=== PATIENT | female | born 1945 | race Caucasian/White ===

== ENCOUNTER 2022-07-22 09:57 | Inpatient (IN) | payer MEDICARE, OTHER ==
[2022-07-19 14:15] LABS: BILIRUBIN,URINE 1+ (NEGATIVE); UROBILINOGEN,URINE 0.2 E.U./dL (0.2)
[2022-07-22] VITALS (10 sets, daily range): BP systolic 90–147; BP diastolic 45–81
[~2022-07-22] VITALS: Ht 152.4 cm; Wt 78.6 kg
[~2022-07-22 09:57] MED LIST: ACET325T12 PO; AMLO-169 PO; ASPI81TA13 PO; AZEL137S4; BACTROBAN OINTMENT TP ONE; ESOM40CA PO; GABA100C7 PO; HYDR25TA9 PO; LEVO75TA6 PO; METO25TA4 PO; NS 250ML 250 ML ONE; NS 3000ML IRR IR ONE; OXYB15TA18 PO; SIMV40TA20 PO; VALS80TA3 PO; VANCOMYCIN 1.5 GM/300 ML BAG 300 ML IV ONE; WATER ONE; ZYNRELEF 400-12 MG/14 ML VIAL IL ONE; [UNRECOGNIZED DRUG - CODE] PO
[2022-07-22] MEDS: LACTATED RINGERS 1,000 ML IV SCH ×2 (10:30→21:08)
--- NOTE | 2022-07-22 12:03 | PCM.HP ---
HISTORY & PHYSICAL HISTORY & PHYSICAL DATE OF ADMISSION: 07/22/22 CHIEF COMPLAINT: right hip pain HISTORY OF PRESENT ILLNESS: Patient reports right hip pain for x1 year, worse over the past few months. She has had cortisone injections over the past few years. She reports groin pain as well as lateral thigh pain. She has had to use a walker for weight bearing over the past 6 months. She has hip pain with household ambulation. She takes tylenol and gabapentin for the pain. She is unable to take NSAIDs due to GI issues. She complains of limping. She had a left hip replacement in 2013. ALLERGIES: PCN, tetracyclines, cetirizine, codeine, naproxen, oxaprozin CURRENT MEDICATIONS:tylenol, proventil, aspirin, astelin, clotrimazole, aricept, nexium, romeo, gabapentin, HCTZ, levothyroxine, metoprolol, nystatin, oxybutynin, simvastatin, valsartan PAST MEDICAL HISTORY:HTN, hypothyroid, tachycardia, OA SOCIAL HISTORY:, lives at home with . Former smoker, reports that she quit smoking in 2013. Denies alcohol use. Denies drug use. FAMILY HISTORY:aneurysm, DM REVIEW OF SYSTEMS: Right hip pain, all other systems unremarkable VITAL SIGNS:WNL PHYSICAL EXAMINATION: SKIN: WNL EENT:WNL AIRWAY:WNL CHEST AND LUNGS: CTA HEART:RRR ABDOMEN: Soft and nontender, BS active x 4 quadrants EXTREMITIES: The right hip has no tenderness about the greater trochanter. She has about 90 degrees of flexion of the right hip. She has no internal rotation with severe pain and only 20 degrees of external rotation. LABORATORY DATA: IMAGING: Xrays of the right hip show that she is [id number] superiorly. SUMMARY: osteoarthritis of the right hip ASSESSMENT/PLAN: Right total hip replacement Laboratory Tests Test 07/19/22 14:00 Urine Collection Type RANDOM Urine Color YELLOW Urine Appearance HAZY Urine Bilirubin 1+ (NEGATIVE) Urine Ictotest NEGATIVE (NEGATIVE) Urine Ketones NEGATIVE (NEGATIVE) Urine Specific [place] 1.025 (1.005-1.030) Urine pH 5.0 (4.5-8.0) Urine Protein 1+ (NEGATIVE) Urine Urobilinogen 0.2 E.U./dL (0.2) Urine Nitrate NEGATIVE (NEGATIVE) Urine Leukocyte Esterase TRACE (NEGATIVE) Urine Glucose (Auto)(UA) NEGATIVE (NEGATIVE) Urine Blood NEGATIVE (NEGATIVE) Urine RBC NONE SEEN RBC/HPF (NONE Urine WBC TooNumerousToCount WBC/HPF (0-2) Urine Squamous Epithelial Cells FEW (<=FEW) Urine Bacteria FEW (NONE SEEN) Microbiology Date/Time Source Procedure Growth Status 07/19/22 14:00 Urine,Random Urine Culture - Final Proteus Mirabilis Eschericha Coli Complete 07/19/22 13:55 Nose MRSA Screen - Final Complete STONE,KALE FIRST BREAKER FEEDER July 22, 2022 12:03
[2022-07-22] MEDS ORDERED: VERSED ONE (14:20)
[2022-07-22] MEDS ORDERED: EXPAREL 266 MG/20 ML VIAL IJ ONE (14:20)
[2022-07-22] MEDS ORDERED: MARCAINE 0.5% ONE (14:20)
[2022-07-22] MEDS ORDERED: OFIRMEV 100 ML IV ONE (14:27)
[2022-07-22] MEDS ORDERED: DECADRON ONE (14:28)
[2022-07-22] MEDS ORDERED: TRANEXAMIC 1,000 MG/100ML-NACL 200 ML IV ONE (14:28)
[2022-07-22] MEDS ORDERED: DIPRIVAN 100 ML IV ONE ×2 (14:28→17:01)
[2022-07-22] MEDS ORDERED: ZOFRAN ONE (14:28)
[2022-07-22] MEDS ORDERED: LACTATED RINGERS 1,000 ML ONE (14:29)
[2022-07-22] MEDS ORDERED: SODIUM CHLORIDE IRR BOTTLE IR ONE (16:11)
[2022-07-22] MEDS ORDERED: VANCOMYCIN HCL 1 GM in NS 250ML 250 ML IV ONE (17:00)
[2022-07-22] MEDS ORDERED: VANCOMYCIN HCL 1 GM ONE (17:03)
[2022-07-22] MEDS ORDERED: NS 250ML 250 ML ONE (17:03)
[2022-07-22] MEDS ORDERED: DILAUDID ONE (18:57)
[2022-07-22] MEDS ORDERED: DILAUDID IV ONE (19:00)
[2022-07-22] MEDS ORDERED: ULTRAM PO PRN (19:30)
[2022-07-22] MEDS ORDERED: LACTATED RINGERS 1,000 ML IV SCH (19:30)
[2022-07-22] MEDS ORDERED: NEXIUM PO SCH (19:30)
[2022-07-22] MEDS ORDERED: ZOFRAN IV PRN (19:30)
[2022-07-22] MEDS ORDERED: CEPACOL SORE THROAT LOZENGE MM PRN (19:30)
--- NOTE | 2022-07-22 20:26 | OPH ---
DATE OF SURGERY: 07/22/2022 DICTATOR NAME: Fermín Fuentes MD PREOPERATIVE DIAGNOSIS: Osteoarthritis of the right hip. POSTOPERATIVE DIAGNOSIS: Osteoarthritis of the right hip. OPERATIVE PROCEDURES: * Right total hip arthroplasty. * ORIF of a right femur fracture. SURGEON: Fermín Fuentes MD. ANESTHESIA: Spinal. BLOOD LOSS: 700 mL COMPLICATIONS: Right femur fracture intraoperatively DESCRIPTION OF INDICATIONS: The patient is a 76-year-old female who has had pain for at least 1 year, about the right hip secondary to osteoarthritis. Symptoms are worse over the last several months. She has had cortisone injections about the hip over the last several years with temporary relief. She complains of groin pain as well as lateral thigh pain. She uses a walker at times in the last 6 months. The patient is severely limited in her daily activities because of hip pain. She cannot take any anti-inflammatories because of GI issues. She complains of limping. The x-ray showed that she superiorly [id number] about the hip with lateral subluxation. The patient has 90 degrees of flexion of the hip. She has no internal rotation and 20 degrees of external rotation with severe pain. The patient was taken to the operating room today for right total hip arthroplasty. DESCRIPTION OF PROCEDURE: The patient was placed in the operating table in the supine position. Spinal anesthetic was given and then she was placed in the operating table in the supine position. The patient had the right foot and ankle well padded and they were placed in a traction boot. The traction boot was then attached to the traction unit. The patient had the right lower extremity sterilely prepped and draped. The patient then had the anterior incision made about the hip. The incision was taken through the skin and the subcutaneous tissues. The patient then had the IT band opened. The tensor muscle was reflected posteriorly. The rectus fascia was opened and the rectus muscles retracted medially. The circumflex vessels were identified and coagulated with the Aquamantys device. The patient had the fat pad over the anterior capsule excised. The capsular incision was made. The capsule was retracted proximally and posteriorly. The femoral neck cut was then made with the power saw and the femoral head was removed with a corkscrew device. The patient then had the fovea cleared. The posterior ligaments were released as well as the piriformis tendon. The patient then had the acetabulum sequentially reamed up to a size 48. The 48 trial had good fit clinically as well as radiographically. The 48 Versafit cup was then impacted into position. The hip was placed in maximal external rotation as well as hyperextension. The canal was opened initially with a curette and then subsequently with the large and small rasp. The canal was then sequentially rasped up to a size 2. A trial reduction was done with a size 2 femoral stem, a lateral neck and the -3.5 and eventually the 3.5 neck length. Trial reduction was done. Hip was felt to be stable. The trial components were then removed and the hip was placed in maximal external rotation and hyperextension. We tried [address] a cement restrictor at the 12 cm freddy, but were unsuccessful disengaging the cement restrictor itself from the cement family practice physician. We elected at that point to proceed with a press-fit arthroplasty. We moved up to a size 3 rasp and rasped the hip. A trial reduction was done and there was appropriate sizing of the components and appropriate leg length. The trial component was removed. The size 3 Medacta stem was then impacted into position. Unfortunately, at the time of x-rays, the patient suffered an intraoperative femoral stem fracture. The C-arm views showed a spiral fracture. We left the stem in position, removed the trial head and the trial liner. We then extended the incision distally about 15 cm. The IT band was opened in line with the skin incision and the vastus lateralis was reflected anteriorly. We placed four 1.7 Synthes cables about the femur and reduced the fracture. C-arm views showed satisfactory positioning of the prosthesis and satisfactory reduction of the fracture. We then placed a 28 mm, -3.5 ceramic head with the 48 liner onto the Painter taper neck. The hip was reduced. There was no change in malalignment of the prosthesis after the reduction. The wounds were then copiously irrigated. The vastus lateralis was closed with a running #1 PDS. The patient had the capsule and the joint irrigated with Betadine for 3 minutes. The Betadine was then irrigated from the wound. The capsule was closed with a #2-0, Ethilon. Zynrelef was then injected into the capsule and the remaining portion of the capsule was closed. The patient then had the IT band closed with a running #1 barbed PDS. The subcutaneous was closed with a 2-0 barbed Monocryl in a running subcuticular manner. The skin was closed with ting. The patient had the suction Prevena type dressing applied. The patient was sent to recovery in stable condition. Fermín Fuentes MD DR: JOHNNY/KEVIN TID: [id number] RECEIPT: [id number]
[2022-07-22] MEDS ORDERED: VANCOMYCIN IV SCH (21:00)
--- NOTE | 2022-07-22 21:07 | DIREP ---
PROCEDURE:XRAY HIP MIN 2VW-RT COMPARISON:None. INDICATIONS:right hip pain FINDINGS: BONES:Bilateral total hip arthroplasty hardware in near-anatomic alignment. JOINTS:Mild osteophytosis of the sacroiliac joints. Marked lumbar spine degenerative changes. SOFT TISSUES:Expected postsurgical changes. OTHER:No additional findings. CONCLUSION:Bilateral total hip arthroplasty hardware without acute complication noted. Dictated by: Jamal Santos M.D. on 07/22/2022 at 09:04 PM
[2022-07-22 21:09] LABS: RED CELL DISTRIBUTION WIDTH 14.7 % (11.5-14.5)
[2022-07-22] MEDS: LOPRESSER PO SCH (21:21)
[2022-07-22] MEDS: NEURONTIN PO SCH (21:21)
[2022-07-22] MEDS: TYLENOL PO SCH (23:24)
[2022-07-23] MEDS: ULTRAM PO PRN ×3 (00:08→20:40)
[2022-07-23 00:23] VITALS: BP 128/67
[2022-07-23 04:46] VITALS: BP 123/56
[2022-07-23] MEDS: TYLENOL PO SCH ×4 (05:46→23:37)
[2022-07-23] MEDS: DILAUDID IV PRN ×2 (05:56→09:26)
[2022-07-23 06:09] LABS: MEAN CORP HGB 28.8 pg (26-34); RED CELL DISTRIBUTION WIDTH 14.5 % (11.5-14.5)
[2022-07-23 08:05] VITALS: BP 91/51
[2022-07-23] MEDS: NEURONTIN PO SCH ×2 (08:41→20:41)
[2022-07-23] MEDS: COLACE PO SCH (08:41)
[2022-07-23] MEDS: DITROPAN PO SCH ×3 (08:42→20:41)
[2022-07-23] MEDS: COZAAR PO SCH ×2 (08:45→20:41)
[2022-07-23] MEDS: CLARITIN PO SCH (08:45)
[2022-07-23] MEDS: HYDROCHLOROTHIAZIDE PO SCH (08:46)
[2022-07-23] MEDS: NORVASC PO SCH (08:46)
[2022-07-23] MEDS: LOPRESSER PO SCH ×3 (08:46→20:41)
[2022-07-23] MEDS ORDERED: SYNTHROID PO SCH (09:00)
[2022-07-23] MEDS: VANCOMYCIN IV SCH ×2 (09:24→20:39)
--- NOTE | 2022-07-23 09:32 | PRM.PN ---
Subjective Subjective Date: July 23, 2022 Time: 09:31 Subjective Awake and alert Pain ok VSS HGB 8.5 Postop anemia from acute surgical blood loss expected Start PT Patient History: Alzheimer's disease G8 MOTHER, , Age:88 Congestive heart failure G8 MOTHER, , Age:88 Diabetes mellitus G8 MOTHER, , Age:88 Unknown G8 FATHER, , Age:34 VTE VTE Risk Total Score: 3 VTE Risk Score VTE Risk: Score 0-1 = Low Risk (Aggressive mobilization; early ambulation; no VTE prophylaxis required) Score 2: Moderate Risk (Intermittent/Pneumatic Compression Device OR Lovenox/Heparin/Coumadin) Score 3-4: High Risk (Intermittent/Pneumatic Compression Device AND Lovenox/Heparin/Coumadin) Score > or =5: Highest Risk (Intermittent/Pneumatic Compression Device AND Lovenox/Heparin/Coumadin) Review of Systems Allergies: Coded Allergies: Penicillins (Verified Allergy, Unknown, ANAPHYLAXIC SHOCK, 07/19/22) Tetracyclines (Verified Allergy, Unknown, "ITCHING, SWELLING, TROUBLE SWALLOWING", 07/19/22) cetirizine (Verified Allergy, Unknown, "TACHYCARDIA", 07/19/22) codeine (Verified Allergy, Unknown, "HORRIBLE HEADACHES, STOMACH PAIN, N/V", 07/19/22) naproxen (Verified Allergy, Unknown, 07/19/22) oxaprozin (Verified Allergy, Unknown, 07/19/22) Scheduled Acetaminophen (Tylenol), 1-2 TAB PO BID, (Reported) Amlodipine Besylate (Amlodipine Besylate), 1 TAB PO DAILY, (Reported) Aspirin (Low Dose Aspirin Ec), 1 TAB PO DAILY, (Reported) Azelastine Hcl (Azelastine Hcl), 2 SPR NA BID, (Reported) Esomeprazole Magnesium (Nexium), 1 CAP PO QAM, (Reported) Fexofenadine Hcl (Fexofenadine Hcl), 1 TAB PO DAILY, (Reported) Gabapentin (Gabapentin), 1 CAP PO BID, (Reported) Hydrochlorothiazide (Hydrochlorothiazide), 1 TAB PO DAILY, (Reported) Levothyroxine Sodium (Levothyroxine Sodium), 1 TAB PO DAILY, (Reported) Metoprolol Tartrate 25MG (Lopresser 25MG), 1 TAB PO BID, (Reported) Oxybutynin Chloride (Oxybutynin Chloride Er), 1 TAB PO DAILY, (Reported) Simvastatin (Simvastatin), 1 TAB PO HS, (Reported) Valsartan (Diovan), 1 TAB PO BID, (Reported) Objective Vitals and I/O Vital Sign - Last 24 Hours 07/22/22 07/22/22 07/22/22 07/22/22 10:05 10:05 15:15 18:56 Temp 97.2 98.3 96.9 Pulse 69 85 Resp 16 20 B/P (MAP) 147/72 (97) 122/50 (74) Pulse Ox 93 94 O2 Delivery Room Air Room Air Non-Rebreather O2 Flow Rate 15.00 07/22/22 07/22/22 07/22/22 07/22/22 19:00 19:00 19:07 19:12 Pulse 68 59 58 Resp 20 18 18 B/P (MAP) 122/50 (74) 107/45 (65) 114/70 (85) Pulse Ox 100 100 95 O2 Delivery Non-Rebreather Non-Rebreather Non-Rebreather O2 Flow Rate 15.00 15.00 15.00 5.00 07/22/22 07/22/22 07/22/22 07/22/22 19:16 19:20 19:25 19:30 Temp 97.0 Pulse 58 58 61 50 Resp 18 18 18 18 B/P (MAP) 118/70 (86) 114/46 (68) 90/65 (73) Pulse Ox 100 99 96 96 O2 Delivery Non-Rebreather Non-Rebreather Non-Rebreather Non-Rebreather O2 Flow Rate 5.00 5.00 5.00 5.00 07/22/22 07/22/22 07/22/22 07/22/22 19:35 19:39 19:40 20:30 Temp 97.3 Pulse 60 60 Resp 18 18 B/P (MAP) 120/72 (88) 138/81 (100) Pulse Ox 90 90 O2 Delivery Non-Rebreather Nasal Canula Nasal Cannula O2 Flow Rate 5.00 3.00 3.00 2.00 07/22/22 07/22/22 07/23/22 07/23/22 20:50 21:21 00:23 04:46 Temp 97.9 97.9 Pulse 60 60 75 79 Resp 18 18 18 B/P (MAP) 138/81 128/67 (87) 123/56 (78) Pulse Ox 90 98 98 O2 Delivery Nasal Cannula* Nasal Cannula* Nasal Cannula* O2 Flow Rate 2 2 2 FiO2 28 28 28 07/23/22 07/23/22 07/23/22 07/23/22 08:05 08:45 08:46 08:46 Temp 98.4 Pulse 90 90 Resp 16 B/P (MAP) 91/51 (64) 91/51 91/51 91/51 Pulse Ox 96 O2 Delivery Nasal Cannula* O2 Flow Rate 2 FiO2 28 07/23/22 07/23/22 09:06 09:28 Pulse 90 B/P (MAP) 126/77 O2 Delivery Nasal Cannula O2 Flow Rate 2.00 Intake and Output 07/23/22 07:00 Intake Total 3150 ml Output Total 380 ml Balance 2770 ml All Results(Lab/Rad) Laboratory Tests Test 07/22/22 20:56 07/23/22 05:53 White Blood Count 17.5 10^3/uL 15.4 10^3/uL Red Blood Count 3.34 10^6/uL 2.95 10^6/uL Hemoglobin 9.7 g/dL 8.5 g/dL Hematocrit 31.4 % 26.4 % Mean Corpuscular Volume 94.0 fL 89.5 fL Mean Corpuscular Hemoglobin 29.0 pg 28.8 pg Mean Corpuscular Hemoglobin Concent 30.9 g/dL 32.2 g/dL Red Cell Distribution Width 14.7 % 14.5 % Platelet Count 250 10^3/uL 241 10^3/uL Mean Platelet Volume 9.4 fL 9.1 fL Current Medications Medications (Trade) Dose Ordered Sig/Camille Route PRN Reason Start Time Stop Time Status Last Admin Dose Admin Mupirocin (Bactroban Ointment) 1 gm OT ONCE TP 07/22/22 07:00 07/22/22 10:01 DC 07/22/22 10:35 Sterile Water (Water) 1,000 ml STK-MED ONCE .ROUTE 07/22/22 07:20 07/22/22 07:20 DC Sodium Chloride 250 ml @ ud STK-MED ONCE .ROUTE 07/22/22 07:21 07/22/22 07:21 DC Sodium Chloride (NS 3000ml Irr) 3,000 ml STK-MED ONCE IR 07/22/22 07:22 07/22/22 07:22 DC Bupivacaine HCl (Marcaine 0.5%) 1 ml STK-MED ONCE .ROUTE 07/22/22 14:20 07/22/22 14:20 DC Acetaminophen 100 ml @ ud STK-MED ONCE IV 07/22/22 14:27 07/22/22 14:28 DC Ondansetron HCl (Zofran) 4 mg STK-MED ONCE .ROUTE 07/22/22 14:28 07/22/22 14:28 DC Propofol 100 ml @ ud STK-MED ONCE IV 07/22/22 14:28 07/22/22 14:28 DC Sodium Chloride (Sodium Chloride Irr Bottle) 1,000 ml STK-MED ONCE IR 07/22/22 16:11 07/22/22 16:11 DC Propofol 100 ml @ ud STK-MED ONCE IV 07/22/22 17:01 07/22/22 17:02 DC Sodium Chloride 250 ml @ ud STK-MED ONCE .ROUTE 07/22/22 17:03 07/22/22 17:03 DC Vancomycin HCl 1 ml @ ud STK-MED ONCE .ROUTE 07/22/22 17:03 07/22/22 17:03 DC Hydromorphone HCl (Dilaudid) 2 mg STK-MED ONCE .ROUTE 07/22/22 18:57 07/22/22 18:57 DC Vancomycin HCl 1 gm/Sodium Chloride 250 ml @ 175 mls/hr OT ONCE IV 07/22/22 17:00 07/22/22 21:30 DC 07/22/22 17:05 Hydromorphone HCl (Dilaudid) 0.5 mg OT ONCE IV 07/22/22 19:00 07/22/22 21:27 DC 07/22/22 09:00 Rivaroxaban (Xarelto) 10 mg DAILY PO 07/23/22 19:00 08/22/22 18:59 Docusate Sodium (Colace) 100 mg DAILY PO 07/23/22 09:00 08/22/22 08:59 07/23/22 08:41 Throat Lozenges (Cepacol Sore Throat Lozenge) 1 each PRN PRN MM SORE THROAT 07/22/22 19:30 08/21/22 19:29 Acetaminophen (Tylenol) 1,000 mg Q6HR PO 07/23/22 00:00 08/22/22 00:00 07/23/22 05:46 Tramadol HCl (Ultram) 50 mg Q6H PRN PO PAIN 1 - 3 07/22/22 19:30 08/21/22 19:29 Tramadol HCl (Ultram) 100 mg Q6H PRN PO PAIN 4 - 6 07/22/22 19:30 08/21/22 19:29 Hydromorphone HCl (Dilaudid) 1 mg Q4H PRN IV PAIN 7 - 10 07/22/22 19:30 08/21/22 19:29 07/23/22 09:26 Ondansetron HCl (Zofran) 4 mg Q4H PRN IV NAUSEA / VOMITING 07/22/22 19:30 08/21/22 19:29 Amlodipine Besylate (Norvasc) 5 mg DAILY PO 07/23/22 09:00 08/22/22 08:59 Esomeprazole Magnesium (Nexium) 40 mg QAM PO 07/22/22 19:30 08/21/22 19:29 Gabapentin (Neurontin) 100 mg BID PO 07/22/22 21:00 08/21/22 20:59 07/23/22 08:41 Hydrochlorothiazide (Hydrochlorothiazide) 25 mg DAILY PO 07/23/22 09:00 08/22/22 08:59 Levothyroxine Sodium (Synthroid) 75 mcg DAILY PO 07/23/22 09:00 08/22/22 08:59 07/23/22 08:42 Metoprolol Tartrate (Lopresser) 25 mg BID PO 07/22/22 21:00 08/21/22 20:59 07/23/22 09:28 Loratadine (Claritin) 10 mg DAILY PO 07/23/22 09:00 08/22/22 08:59 07/23/22 08:45 Oxybutynin Chloride (Ditropan) 5 mg TID PO 07/23/22 09:00 08/22/22 08:59 07/23/22 08:42 Atorvastatin Calcium (Lipitor) 20 mg HS PO 07/23/22 21:00 08/22/22 20:59 Losartan Potassium (Cozaar) 50 mg BID PO 07/23/22 09:00 08/22/22 08:59 Course Sepsis Screening Results: Posi: NEGATIVE Sepsis Qualifier/Stage: NO DEFINITE RISK Vitals & review Data Vital Sign - Last 24 Hours 07/22/22 07/22/22 07/22/22 07/22/22 10:05 10:05 15:15 18:56 Temp 97.2 98.3 96.9 Pulse 69 85 Resp 16 20 B/P (MAP) 147/72 (97) 122/50 (74) Pulse Ox 93 94 O2 Delivery Room Air Room Air Non-Rebreather O2 Flow Rate 15.00 07/22/22 07/22/22 07/22/22 07/22/22 19:00 19:00 19:07 19:12 Pulse 68 59 58 Resp 20 18 18 B/P (MAP) 122/50 (74) 107/45 (65) 114/70 (85) Pulse Ox 100 100 95 O2 Delivery Non-Rebreather Non-Rebreather Non-Rebreather O2 Flow Rate 15.00 15.00 15.00 5.00 07/22/22 07/22/22 07/22/22 07/22/22 19:16 19:20 19:25 19:30 Temp 97.0 Pulse 58 58 61 50 Resp 18 18 18 18 B/P (MAP) 118/70 (86) 114/46 (68) 90/65 (73) Pulse Ox 100 99 96 96 O2 Delivery Non-Rebreather Non-Rebreather Non-Rebreather Non-Rebreather O2 Flow Rate 5.00 5.00 5.00 5.00 07/22/22 07/22/22 07/22/22 07/22/22 19:35 19:39 19:40 20:30 Temp 97.3 Pulse 60 60 Resp 18 18 B/P (MAP) 120/72 (88) 138/81 (100) Pulse Ox 90 90 O2 Delivery Non-Rebreather Nasal Canula Nasal Cannula O2 Flow Rate 5.00 3.00 3.00 2.00 07/22/22 07/22/22 07/23/22 07/23/22 20:50 21:21 00:23 04:46 Temp 97.9 97.9 Pulse 60 60 75 79 Resp 18 18 18 B/P (MAP) 138/81 128/67 (87) 123/56 (78) Pulse Ox 90 98 98 O2 Delivery Nasal Cannula* Nasal Cannula* Nasal Cannula* O2 Flow Rate 2 2 2 FiO2 28 28 28 07/23/22 07/23/22 07/23/22 07/23/22 08:05 08:45 08:46 08:46 Temp 98.4 Pulse 90 90 Resp 16 B/P (MAP) 91/51 (64) 91/51 91/51 91/51 Pulse Ox 96 O2 Delivery Nasal Cannula* O2 Flow Rate 2 FiO2 28 07/23/22 07/23/22 09:06 09:28 Pulse 90 B/P (MAP) 126/77 O2 Delivery Nasal Cannula O2 Flow Rate 2.00 Intake and Output 07/23/22 07:00 Intake Total 3150 ml Output Total 380 ml Balance 2770 ml Laboratory Tests Test 07/22/22 20:56 07/23/22 05:53 White Blood Count 17.5 10^3/uL 15.4 10^3/uL Red Blood Count 3.34 10^6/uL 2.95 10^6/uL Hemoglobin 9.7 g/dL 8.5 g/dL Hematocrit 31.4 % 26.4 % Mean Corpuscular Volume 94.0 fL 89.5 fL Mean Corpuscular Hemoglobin 29.0 pg 28.8 pg Mean Corpuscular Hemoglobin Concent 30.9 g/dL 32.2 g/dL Red Cell Distribution Width 14.7 % 14.5 % Platelet Count 250 10^3/uL 241 10^3/uL Mean Platelet Volume 9.4 fL 9.1 fL Current Medications Medications (Trade) Dose Ordered Sig/Camille PRN Reason Start Time Stop Time Status Last Admin Acetaminophen (Tylenol) 1,000 mg Q6HR 07/23/22 00:00 08/22/22 00:00 07/23/22 05:46 Amlodipine Besylate (Norvasc) 5 mg DAILY 07/23/22 09:00 08/22/22 08:59 Atorvastatin Calcium (Lipitor) 20 mg HS 07/23/22 21:00 08/22/22 20:59 Docusate Sodium (Colace) 100 mg DAILY 07/23/22 09:00 08/22/22 08:59 07/23/22 08:41 Esomeprazole Magnesium (Nexium) 40 mg QAM 07/22/22 19:30 08/21/22 19:29 Gabapentin (Neurontin) 100 mg BID 07/22/22 21:00 08/21/22 20:59 07/23/22 08:41 Hydrochlorothiazide (Hydrochlorothiazide) 25 mg DAILY 07/23/22 09:00 08/22/22 08:59 Hydromorphone HCl (Dilaudid) 1 mg Q4H PRN PAIN 7 - 10 07/22/22 19:30 08/21/22 19:29 07/23/22 09:26 Levothyroxine Sodium (Synthroid) 75 mcg DAILY 07/23/22 09:00 08/22/22 08:59 07/23/22 08:42 Loratadine (Claritin) 10 mg DAILY 07/23/22 09:00 08/22/22 08:59 07/23/22 08:45 Losartan Potassium (Cozaar) 50 mg BID 07/23/22 09:00 08/22/22 08:59 Metoprolol Tartrate (Lopresser) 25 mg BID 07/22/22 21:00 08/21/22 20:59 07/23/22 09:28 Ondansetron HCl (Zofran) 4 mg Q4H PRN NAUSEA / VOMITING 07/22/22 19:30 08/21/22 19:29 Oxybutynin Chloride (Ditropan) 5 mg TID 07/23/22 09:00 08/22/22 08:59 07/23/22 08:42 Rivaroxaban (Xarelto) 10 mg DAILY 07/23/22 19:00 08/22/22 18:59 Throat Lozenges (Cepacol Sore Throat Lozenge) 1 each PRN PRN SORE THROAT 07/22/22 19:30 08/21/22 19:29 Tramadol HCl (Ultram) 50 mg Q6H PRN PAIN 1 - 3 07/22/22 19:30 08/21/22 19:29 Tramadol HCl (Ultram) 100 mg Q6H PRN PAIN 4 - 6 07/22/22 19:30 08/21/22 19:29 LEVEL 1 SEPSIS INFECTION CRITE: ABX Therapy, Recent Invasive Procedure LEVEL 2-SIRS (LIST ALL THAT AP: WBC>[id number] Cardiovascular Evidence: Not Assessed or None Hepatic Evidence: None/Not assessed Metabolic Evidence: None/Not assessed Neurological Evidence: None/Not assessed Respiratory Evidence: None/Not assessed O2 Sat by Pulse Oximetry: 96 Oxygen Flow Rate: 2.00 ARYA STRONG MD July 23, 2022 09:32
[2022-07-23] MEDS ORDERED: NS 250ML 250 ML ONE ×2 (09:37→20:33)
[2022-07-23] MEDS ORDERED: DILAUDID IV PRN (10:00)
[2022-07-23] MEDS: PROTONIX PO SCH (10:00)
--- NOTE | 2022-07-23 10:00 | NUR ---
PT STATUS NOTIFIED TAVON RODRIGUEZ IN REGARD TO PT STATUS. PT IS AROUSABLE TO TOUCH HOWEVER FALLS ASLEEP VERY QUICKLY AND WAS NOT ABLE TO STAND WITH PT/OT THIS MORNING. CHANNEL LAYER STATES DILAUDID WAS CHANGED TO Q8HR/PRN INSTEAD OF Q4HR/PRN, AND PERHAPS THIS COULD BE THE REASON WHY PT IS SLEEPY. BLOOD PRESSURE CHECKED AND IS 106/57 RR 18 AND HR 96. WILL CONTINUE TO UPDATE DR STRONG AND OR TAVON GARCIA NEEDED.
[2022-07-23 11:54] VITALS: BP 105/63
[2022-07-23 16:28] VITALS: BP 117/63
[2022-07-23] MEDS: XARELTO PO SCH (19:09)
[2022-07-23 20:33] VITALS: BP 103/60
[2022-07-23] MEDS: LIPITOR PO SCH (20:42)
[2022-07-24] VITALS (9 sets, daily range): BP systolic 103–136; BP diastolic 55–74
[2022-07-24 05:28] LABS: MEAN CORP HGB 28.5 pg (26-34); RED CELL DISTRIBUTION WIDTH 14.8 % (11.5-14.5)
[2022-07-24] MEDS: SYNTHROID PO SCH (06:02)
[2022-07-24] MEDS: TYLENOL PO SCH ×4 (06:02→23:44)
[2022-07-24] MEDS: ULTRAM PO PRN ×3 (06:09→21:23)
[2022-07-24] MEDS: DITROPAN PO SCH ×3 (09:22→21:05)
[2022-07-24] MEDS: COLACE PO SCH (09:22)
--- NOTE | 2022-07-24 09:22 | PRM.PN ---
Subjective Subjective Date: July 24, 2022 Time: 09:20 Subjective Very sleepy yesterday from Claudia Stood at bedside with PT VSS HGB 7.2 Will transfuse [id number] PRBCS Cont with PT Patient History: Alzheimer's disease G8 MOTHER, , Age:88 Congestive heart failure G8 MOTHER, , Age:88 Diabetes mellitus G8 MOTHER, , Age:88 Unknown G8 FATHER, , Age:34 VTE VTE Risk Total Score: 3 VTE Risk Score VTE Risk: Score 0-1 = Low Risk (Aggressive mobilization; early ambulation; no VTE prophylaxis required) Score 2: Moderate Risk (Intermittent/Pneumatic Compression Device OR Lovenox/Heparin/Coumadin) Score 3-4: High Risk (Intermittent/Pneumatic Compression Device AND Lovenox/Heparin/Coumadin) Score > or =5: Highest Risk (Intermittent/Pneumatic Compression Device AND Lovenox/Heparin/Coumadin) Review of Systems Allergies: Coded Allergies: Penicillins (Verified Allergy, Unknown, ANAPHYLAXIC SHOCK, 07/19/22) Tetracyclines (Verified Allergy, Unknown, "ITCHING, SWELLING, TROUBLE SWALLOWING", 07/19/22) cetirizine (Verified Allergy, Unknown, "TACHYCARDIA", 07/19/22) codeine (Verified Allergy, Unknown, "HORRIBLE HEADACHES, STOMACH PAIN, N/V", 07/19/22) naproxen (Verified Allergy, Unknown, 07/19/22) oxaprozin (Verified Allergy, Unknown, 07/19/22) Scheduled Acetaminophen (Tylenol), 1-2 TAB PO BID, (Reported) Amlodipine Besylate (Amlodipine Besylate), 1 TAB PO DAILY, (Reported) Aspirin (Low Dose Aspirin Ec), 1 TAB PO DAILY, (Reported) Azelastine Hcl (Azelastine Hcl), 2 SPR NA BID, (Reported) Esomeprazole Magnesium (Nexium), 1 CAP PO QAM, (Reported) Fexofenadine Hcl (Fexofenadine Hcl), 1 TAB PO DAILY, (Reported) Gabapentin (Gabapentin), 1 CAP PO BID, (Reported) Hydrochlorothiazide (Hydrochlorothiazide), 1 TAB PO DAILY, (Reported) Levothyroxine Sodium (Levothyroxine Sodium), 1 TAB PO DAILY, (Reported) Metoprolol Tartrate 25MG (Lopresser 25MG), 1 TAB PO BID, (Reported) Oxybutynin Chloride (Oxybutynin Chloride Er), 1 TAB PO DAILY, (Reported) Simvastatin (Simvastatin), 1 TAB PO HS, (Reported) Valsartan (Diovan), 1 TAB PO BID, (Reported) Objective Vitals and I/O Vital Sign - Last 24 Hours 07/23/22 07/23/22 07/23/22 07/23/22 09:28 09:30 10:00 11:54 Temp 97.9 Pulse 90 87 76 Resp 16 16 B/P (MAP) 126/77 105/63 (77) Pulse Ox 92 76 O2 Delivery Room Air* Nasal Cannula Nasal Cannula* O2 Flow Rate 0 2.00 2 FiO2 07/23/22 07/23/22 07/23/22 07/23/22 16:28 19:54 19:55 20:33 Temp 98.3 97.7 Pulse 79 90 Resp 16 17 B/P (MAP) 117/63 (81) 103/60 (74) Pulse Ox 92 93 O2 Delivery Nasal Cannula* Room Air Room Air Room Air* O2 Flow Rate 2 0.00 0.00 0 FiO2 28 21 07/23/22 07/23/22 07/23/22 07/24/22 20:41 20:41 21:15 00:24 Temp 98.0 Pulse 90 82 92 Resp 20 17 B/P (MAP) 103/60 103/60 127/62 (83) Pulse Ox 90 93 O2 Delivery Room Air* Room Air* O2 Flow Rate 0 0 FiO2 21 07/24/22 07/24/22 07/24/22 07/24/22 04:05 07:47 08:04 08:28 Temp 97.6 97.3 Pulse 90 88 Resp 17 20 B/P (MAP) 103/55 (71) 127/58 (81) Pulse Ox 94 91 O2 Delivery Room Air* Room Air Room Air* Room Air O2 Flow Rate 0 0.00 0 0.00 FiO2 21 21 Intake and Output 07/24/22 07:00 Intake Total 680 ml Output Total 850 ml Balance -170 ml All Results(Lab/Rad) Laboratory Tests Test 07/22/22 20:56 07/23/22 05:53 White Blood Count 17.5 10^3/uL 15.4 10^3/uL Red Blood Count 3.34 10^6/uL 2.95 10^6/uL Hemoglobin 9.7 g/dL 8.5 g/dL Hematocrit 31.4 % 26.4 % Mean Corpuscular Volume 94.0 fL 89.5 fL Mean Corpuscular Hemoglobin 29.0 pg 28.8 pg Mean Corpuscular Hemoglobin Concent 30.9 g/dL 32.2 g/dL Red Cell Distribution Width 14.7 % 14.5 % Platelet Count 250 10^3/uL 241 10^3/uL Mean Platelet Volume 9.4 fL 9.1 fL Current Medications Medications (Trade) Dose Ordered Sig/Camille Route PRN Reason Start Time Stop Time Status Last Admin Dose Admin Mupirocin (Bactroban Ointment) 1 gm OT ONCE TP 07/22/22 07:00 07/22/22 10:01 DC 07/22/22 10:35 Sterile Water (Water) 1,000 ml STK-MED ONCE .ROUTE 07/22/22 07:20 07/22/22 07:20 DC Sodium Chloride 250 ml @ ud STK-MED ONCE .ROUTE 07/22/22 07:21 07/22/22 07:21 DC Sodium Chloride (NS 3000ml Irr) 3,000 ml STK-MED ONCE IR 07/22/22 07:22 07/22/22 07:22 DC Bupivacaine HCl (Marcaine 0.5%) 1 ml STK-MED ONCE .ROUTE 07/22/22 14:20 07/22/22 14:20 DC Acetaminophen 100 ml @ ud STK-MED ONCE IV 07/22/22 14:27 07/22/22 14:28 DC Ondansetron HCl (Zofran) 4 mg STK-MED ONCE .ROUTE 07/22/22 14:28 07/22/22 14:28 DC Propofol 100 ml @ ud STK-MED ONCE IV 07/22/22 14:28 07/22/22 14:28 DC Sodium Chloride (Sodium Chloride Irr Bottle) 1,000 ml STK-MED ONCE IR 07/22/22 16:11 07/22/22 16:11 DC Propofol 100 ml @ ud STK-MED ONCE IV 07/22/22 17:01 07/22/22 17:02 DC Sodium Chloride 250 ml @ ud STK-MED ONCE .ROUTE 07/22/22 17:03 07/22/22 17:03 DC Vancomycin HCl 1 ml @ ud STK-MED ONCE .ROUTE 07/22/22 17:03 07/22/22 17:03 DC Hydromorphone HCl (Dilaudid) 2 mg STK-MED ONCE .ROUTE 07/22/22 18:57 07/22/22 18:57 DC Vancomycin HCl 1 gm/Sodium Chloride 250 ml @ 175 mls/hr OT ONCE IV 07/22/22 17:00 07/22/22 21:30 DC 07/22/22 17:05 Hydromorphone HCl (Dilaudid) 0.5 mg OT ONCE IV 07/22/22 19:00 07/22/22 21:27 DC 07/22/22 09:00 Rivaroxaban (Xarelto) 10 mg DAILY PO 07/23/22 19:00 08/22/22 18:59 Docusate Sodium (Colace) 100 mg DAILY PO 07/23/22 09:00 08/22/22 08:59 07/23/22 08:41 Throat Lozenges (Cepacol Sore Throat Lozenge) 1 each PRN PRN MM SORE THROAT 07/22/22 19:30 08/21/22 19:29 Acetaminophen (Tylenol) 1,000 mg Q6HR PO 07/23/22 00:00 08/22/22 00:00 07/23/22 05:46 Tramadol HCl (Ultram) 50 mg Q6H PRN PO PAIN 1 - 3 07/22/22 19:30 08/21/22 19:29 Tramadol HCl (Ultram) 100 mg Q6H PRN PO PAIN 4 - 6 07/22/22 19:30 08/21/22 19:29 Hydromorphone HCl (Dilaudid) 1 mg Q4H PRN IV PAIN 7 - 10 07/22/22 19:30 08/21/22 19:29 07/23/22 09:26 Ondansetron HCl (Zofran) 4 mg Q4H PRN IV NAUSEA / VOMITING 07/22/22 19:30 08/21/22 19:29 Amlodipine Besylate (Norvasc) 5 mg DAILY PO 07/23/22 09:00 08/22/22 08:59 Esomeprazole Magnesium (Nexium) 40 mg QAM PO 07/22/22 19:30 08/21/22 19:29 Gabapentin (Neurontin) 100 mg BID PO 07/22/22 21:00 08/21/22 20:59 07/23/22 08:41 Hydrochlorothiazide (Hydrochlorothiazide) 25 mg DAILY PO 07/23/22 09:00 08/22/22 08:59 Levothyroxine Sodium (Synthroid) 75 mcg DAILY PO 07/23/22 09:00 08/22/22 08:59 07/23/22 08:42 Metoprolol Tartrate (Lopresser) 25 mg BID PO 07/22/22 21:00 08/21/22 20:59 07/23/22 09:28 Loratadine (Claritin) 10 mg DAILY PO 07/23/22 09:00 08/22/22 08:59 07/23/22 08:45 Oxybutynin Chloride (Ditropan) 5 mg TID PO 07/23/22 09:00 08/22/22 08:59 07/23/22 08:42 Atorvastatin Calcium (Lipitor) 20 mg HS PO 07/23/22 21:00 08/22/22 20:59 Losartan Potassium (Cozaar) 50 mg BID PO 07/23/22 09:00 08/22/22 08:59 Course Sepsis Screening Results: Posi: NEGATIVE Sepsis Qualifier/Stage: NO DEFINITE RISK Vitals & review Data Vital Sign - Last 24 Hours 07/22/22 07/22/22 07/22/22 07/22/22 10:05 10:05 15:15 18:56 Temp 97.2 98.3 96.9 Pulse 69 85 Resp 16 20 B/P (MAP) 147/72 (97) 122/50 (74) Pulse Ox 93 94 O2 Delivery Room Air Room Air Non-Rebreather O2 Flow Rate 15.00 07/22/22 07/22/22 07/22/22 07/22/22 19:00 19:00 19:07 19:12 Pulse 68 59 58 Resp 20 18 18 B/P (MAP) 122/50 (74) 107/45 (65) 114/70 (85) Pulse Ox 100 100 95 O2 Delivery Non-Rebreather Non-Rebreather Non-Rebreather O2 Flow Rate 15.00 15.00 15.00 5.00 07/22/22 07/22/22 07/22/22 07/22/22 19:16 19:20 19:25 19:30 Temp 97.0 Pulse 58 58 61 50 Resp 18 18 18 18 B/P (MAP) 118/70 (86) 114/46 (68) 90/65 (73) Pulse Ox 100 99 96 96 O2 Delivery Non-Rebreather Non-Rebreather Non-Rebreather Non-Rebreather O2 Flow Rate 5.00 5.00 5.00 5.00 07/22/22 07/22/22 07/22/22 07/22/22 19:35 19:39 19:40 20:30 Temp 97.3 Pulse 60 60 Resp 18 18 B/P (MAP) 120/72 (88) 138/81 (100) Pulse Ox 90 90 O2 Delivery Non-Rebreather Nasal Canula Nasal Cannula O2 Flow Rate 5.00 3.00 3.00 2.00 07/22/22 07/22/22 07/23/22 07/23/22 20:50 21:21 00:23 04:46 Temp 97.9 97.9 Pulse 60 60 75 79 Resp 18 18 18 B/P (MAP) 138/81 128/67 (87) 123/56 (78) Pulse Ox 90 98 98 O2 Delivery Nasal Cannula* Nasal Cannula* Nasal Cannula* O2 Flow Rate 2 2 2 FiO2 28 28 28 07/23/22 07/23/22 07/23/22 07/23/22 08:05 08:45 08:46 08:46 Temp 98.4 Pulse 90 90 Resp 16 B/P (MAP) 91/51 (64) 91/51 91/51 91/51 Pulse Ox 96 O2 Delivery Nasal Cannula* O2 Flow Rate 2 FiO2 28 07/23/22 07/23/22 09:06 09:28 Pulse 90 B/P (MAP) 126/77 O2 Delivery Nasal Cannula O2 Flow Rate 2.00 Intake and Output 07/23/22 07:00 Intake Total 3150 ml Output Total 380 ml Balance 2770 ml Laboratory Tests Test 07/22/22 20:56 07/23/22 05:53 White Blood Count 17.5 10^3/uL 15.4 10^3/uL Red Blood Count 3.34 10^6/uL 2.95 10^6/uL Hemoglobin 9.7 g/dL 8.5 g/dL Hematocrit 31.4 % 26.4 % Mean Corpuscular Volume 94.0 fL 89.5 fL Mean Corpuscular Hemoglobin 29.0 pg 28.8 pg Mean Corpuscular Hemoglobin Concent 30.9 g/dL 32.2 g/dL Red Cell Distribution Width 14.7 % 14.5 % Platelet Count 250 10^3/uL 241 10^3/uL Mean Platelet Volume 9.4 fL 9.1 fL Current Medications Medications (Trade) Dose Ordered Sig/Camille PRN Reason Start Time Stop Time Status Last Admin Acetaminophen (Tylenol) 1,000 mg Q6HR 07/23/22 00:00 08/22/22 00:00 07/23/22 05:46 Amlodipine Besylate (Norvasc) 5 mg DAILY 07/23/22 09:00 08/22/22 08:59 Atorvastatin Calcium (Lipitor) 20 mg HS 07/23/22 21:00 08/22/22 20:59 Docusate Sodium (Colace) 100 mg DAILY 07/23/22 09:00 08/22/22 08:59 07/23/22 08:41 Esomeprazole Magnesium (Nexium) 40 mg QAM 07/22/22 19:30 08/21/22 19:29 Gabapentin (Neurontin) 100 mg BID 07/22/22 21:00 08/21/22 20:59 07/23/22 08:41 Hydrochlorothiazide (Hydrochlorothiazide) 25 mg DAILY 07/23/22 09:00 08/22/22 08:59 Hydromorphone HCl (Dilaudid) 1 mg Q4H PRN PAIN 7 - 10 07/22/22 19:30 08/21/22 19:29 07/23/22 09:26 Levothyroxine Sodium (Synthroid) 75 mcg DAILY 07/23/22 09:00 08/22/22 08:59 07/23/22 08:42 Loratadine (Claritin) 10 mg DAILY 07/23/22 09:00 08/22/22 08:59 07/23/22 08:45 Losartan Potassium (Cozaar) 50 mg BID 07/23/22 09:00 08/22/22 08:59 Metoprolol Tartrate (Lopresser) 25 mg BID 07/22/22 21:00 08/21/22 20:59 07/23/22 09:28 Ondansetron HCl (Zofran) 4 mg Q4H PRN NAUSEA / VOMITING 07/22/22 19:30 08/21/22 19:29 Oxybutynin Chloride (Ditropan) 5 mg TID 07/23/22 09:00 08/22/22 08:59 07/23/22 08:42 Rivaroxaban (Xarelto) 10 mg DAILY 07/23/22 19:00 08/22/22 18:59 Throat Lozenges (Cepacol Sore Throat Lozenge) 1 each PRN PRN SORE THROAT 07/22/22 19:30 08/21/22 19:29 Tramadol HCl (Ultram) 50 mg Q6H PRN PAIN 1 - 3 07/22/22 19:30 08/21/22 19:29 Tramadol HCl (Ultram) 100 mg Q6H PRN PAIN 4 - 6 07/22/22 19:30 08/21/22 19:29 LEVEL 1 SEPSIS INFECTION CRITE: ABX Therapy, Recent Invasive Procedure LEVEL 2-SIRS (LIST ALL THAT AP: WBC>[id number] Cardiovascular Evidence: Not Assessed or None Hematologic Evidence: None/Not assessed Hepatic Evidence: None/Not assessed Metabolic Evidence: None/Not assessed Neurological Evidence: None/Not assessed Respiratory Evidence: None/Not assessed Renal Evidence: None/Not assessed O2 Sat by Pulse Oximetry: 91 Oxygen Flow Rate: 0.00 ARYA STRONG MD July 24, 2022 09:21
[2022-07-24] MEDS: LOPRESSER PO SCH ×2 (09:23→21:06)
[2022-07-24] MEDS: NORVASC PO SCH (09:23)
[2022-07-24] MEDS: PROTONIX PO SCH (09:23)
[2022-07-24] MEDS: XARELTO PO SCH (09:23)
[2022-07-24] MEDS: NEURONTIN PO SCH ×2 (09:24→21:06)
[2022-07-24] MEDS: HYDROCHLOROTHIAZIDE PO SCH (09:24)
[2022-07-24] MEDS: CLARITIN PO SCH (09:24)
[2022-07-24] MEDS: COZAAR PO SCH ×2 (09:24→21:06)
--- NOTE | 2022-07-24 09:35 | NUR ---
DC CORREIA CORREIA D/C AT 0935. REMOVED 8CC FROM BULB AND 800ML FROM CORREIA. PT DUE TO VOID AT 1735.
[2022-07-24] MEDS: LIPITOR PO SCH (21:06)
[2022-07-24] MEDS: CIPRO PO SCH (21:39)
[2022-07-25 00:09] VITALS: BP 107/73
[2022-07-25 03:55] VITALS: BP 112/64
[2022-07-25 05:26] LABS: MEAN CORP HGB 29.2 pg (26-34)
[2022-07-25 05:42] LABS: CARBON DIOXIDE 23.9 mmol/L (20.0-32)
[2022-07-25] MEDS: TYLENOL PO SCH (06:00)
[2022-07-25] MEDS: SYNTHROID PO SCH (06:00)
[2022-07-25 08:00] VITALS: BP 112/63
[2022-07-25] MEDS: CIPRO PO SCH (08:46)
[2022-07-25] MEDS: NORVASC PO SCH ×2 (08:47→09:00)
[2022-07-25] MEDS: CLARITIN PO SCH (08:47)
[2022-07-25] MEDS: COLACE PO SCH (08:47)
[2022-07-25] MEDS: COZAAR PO SCH ×2 (08:47→08:59)
[2022-07-25] MEDS: NEURONTIN PO SCH (08:48)
[2022-07-25] MEDS: XARELTO PO SCH (08:49)
[2022-07-25] MEDS: PROTONIX PO SCH (08:49)
[2022-07-25] MEDS: ULTRAM PO PRN (08:52)
[2022-07-25] MEDS: DITROPAN PO SCH (08:53)
[2022-07-25] MEDS: LOPRESSER PO SCH (08:59)
[2022-07-25] MEDS: HYDROCHLOROTHIAZIDE PO SCH (09:00)
--- NOTE | 2022-07-25 09:08 | NUR ---
HELD 0900 DOSES OF COZAAR 50MG, HCTZ 25MG AND NORVASC 5MG , GAVE 12.5 MG OF LOPRESSOR PER DR CAPELLAN
--- NOTE | 2022-07-25 10:52 | PRM.DC ---
[facility] Summary Date of Discharge: July 25, 2022 Time of Request to Discharge: 10:43 Final Dx: osteoarthritis of the right hip, status post right total hip replacement Consultations hospitalist Procedures: right total hip replacement Impressions/Complications: none HPI/Course DATE OF ADMISSION: 07/22/22 CHIEF COMPLAINT: right hip pain HISTORY OF PRESENT ILLNESS: Patient reports right hip pain for x1 year, worse over the past few months. She has had cortisone injections over the past few years. She reports groin pain as well as lateral thigh pain. She has had to use a walker for weight bearing over the past 6 months. She has hip pain with household ambulation. She takes tylenol and gabapentin for the pain. She is unable to take NSAIDs due to GI issues. She complains of limping. She had a left hip replacement in 2013. ALLERGIES: PCN, tetracyclines, cetirizine, codeine, naproxen, oxaprozin CURRENT MEDICATIONS:tylenol, proventil, aspirin, astelin, clotrimazole, aricept, nexium, romeo, gabapentin, HCTZ, levothyroxine, metoprolol, nystatin, oxybutynin, simvastatin, valsartan PAST MEDICAL HISTORY:HTN, hypothyroid, tachycardia, OA SOCIAL HISTORY:, lives at home with . Former smoker, reports that she quit smoking in 2013. Denies alcohol use. Denies drug use. FAMILY HISTORY:aneurysm, DM REVIEW OF SYSTEMS: Right hip pain, all other systems unremarkable VITAL SIGNS:WNL PHYSICAL EXAMINATION: SKIN: WNL EENT:WNL AIRWAY:WNL CHEST AND LUNGS: CTA HEART:RRR ABDOMEN: Soft and nontender, BS active x 4 quadrants EXTREMITIES: The right hip has no tenderness about the greater trochanter. She has about 90 degrees of flexion of the right hip. She has no internal rotation with severe pain and only 20 degrees of external rotation. LABORATORY DATA: IMAGING: Xrays of the right hip show that she is [id number] superiorly. SUMMARY: osteoarthritis of the right hip ASSESSMENT/PLAN: Right total hip replacement Laboratory Tests Test 07/19/22 14:00 Urine Collection Type RANDOM Urine Color YELLOW Urine Appearance HAZY Urine Bilirubin 1+ (NEGATIVE) Urine Ictotest NEGATIVE (NEGATIVE) Urine Ketones NEGATIVE (NEGATIVE) Urine Specific [place] 1.025 (1.005-1.030) Urine pH 5.0 (4.5-8.0) Urine Protein 1+ (NEGATIVE) Urine Urobilinogen 0.2 E.U./dL (0.2) Urine Nitrate NEGATIVE (NEGATIVE) Urine Leukocyte Esterase TRACE (NEGATIVE) Urine Glucose (Auto)(UA) NEGATIVE (NEGATIVE) Urine Blood NEGATIVE (NEGATIVE) Urine RBC NONE SEEN RBC/HPF (NONE Urine WBC TooNumerousToCount WBC/HPF (0-2) Urine Squamous Epithelial Cells FEW (<=FEW) Urine Bacteria FEW (NONE SEEN) Microbiology Date/Time Source Procedure Growth Status 07/19/22 14:00 Urine,Random Urine Culture - Final Proteus Mirabilis Eschericha Coli Complete 07/19/22 13:55 Nose MRSA Screen - Final Complete Lab/[facility]/Rad Laboratory Tests Test 07/22/22 20:56 07/23/22 05:53 White Blood Count 17.5 10^3/uL 15.4 10^3/uL Red Blood Count 3.34 10^6/uL 2.95 10^6/uL Hemoglobin 9.7 g/dL 8.5 g/dL Hematocrit 31.4 % 26.4 % Mean Corpuscular Volume 94.0 fL 89.5 fL Mean Corpuscular Hemoglobin 29.0 pg 28.8 pg Mean Corpuscular Hemoglobin Concent 30.9 g/dL 32.2 g/dL Red Cell Distribution Width 14.7 % 14.5 % Platelet Count 250 10^3/uL 241 10^3/uL Mean Platelet Volume 9.4 fL 9.1 fL Current Medications Medications (Trade) Dose Ordered Sig/Camille Route PRN Reason Start Time Stop Time Status Last Admin Dose Admin Mupirocin (Bactroban Ointment) 1 gm OT ONCE TP 07/22/22 07:00 07/22/22 10:01 DC 07/22/22 10:35 Sterile Water (Water) 1,000 ml STK-MED ONCE .ROUTE 07/22/22 07:20 07/22/22 07:20 DC Sodium Chloride 250 ml @ ud STK-MED ONCE .ROUTE 07/22/22 07:21 07/22/22 07:21 DC Sodium Chloride (NS 3000ml Irr) 3,000 ml STK-MED ONCE IR 07/22/22 07:22 07/22/22 07:22 DC Bupivacaine HCl (Marcaine 0.5%) 1 ml STK-MED ONCE .ROUTE 07/22/22 14:20 07/22/22 14:20 DC Acetaminophen 100 ml @ ud STK-MED ONCE IV 07/22/22 14:27 07/22/22 14:28 DC Ondansetron HCl (Zofran) 4 mg STK-MED ONCE .ROUTE 07/22/22 14:28 07/22/22 14:28 DC Propofol 100 ml @ ud STK-MED ONCE IV 07/22/22 14:28 07/22/22 14:28 DC Sodium Chloride (Sodium Chloride Irr Bottle) 1,000 ml STK-MED ONCE IR 07/22/22 16:11 07/22/22 16:11 DC Propofol 100 ml @ ud STK-MED ONCE IV 07/22/22 17:01 07/22/22 17:02 DC Sodium Chloride 250 ml @ ud STK-MED ONCE .ROUTE 07/22/22 17:03 07/22/22 17:03 DC Vancomycin HCl 1 ml @ ud STK-MED ONCE .ROUTE 07/22/22 17:03 07/22/22 17:03 DC Hydromorphone HCl (Dilaudid) 2 mg STK-MED ONCE .ROUTE 07/22/22 18:57 07/22/22 18:57 DC Vancomycin HCl 1 gm/Sodium Chloride 250 ml @ 175 mls/hr OT ONCE IV 07/22/22 17:00 07/22/22 21:30 DC 07/22/22 17:05 Hydromorphone HCl (Dilaudid) 0.5 mg OT ONCE IV 07/22/22 19:00 07/22/22 21:27 DC 07/22/22 09:00 Rivaroxaban (Xarelto) 10 mg DAILY PO 07/23/22 19:00 08/22/22 18:59 Docusate Sodium (Colace) 100 mg DAILY PO 07/23/22 09:00 08/22/22 08:59 07/23/22 08:41 Throat Lozenges (Cepacol Sore Throat Lozenge) 1 each PRN PRN MM SORE THROAT 07/22/22 19:30 08/21/22 19:29 Acetaminophen (Tylenol) 1,000 mg Q6HR PO 07/23/22 00:00 08/22/22 00:00 07/23/22 05:46 Tramadol HCl (Ultram) 50 mg Q6H PRN PO PAIN 1 - 3 07/22/22 19:30 08/21/22 19:29 Tramadol HCl (Ultram) 100 mg Q6H PRN PO PAIN 4 - 6 07/22/22 19:30 08/21/22 19:29 Hydromorphone HCl (Dilaudid) 1 mg Q4H PRN IV PAIN 7 - 10 07/22/22 19:30 08/21/22 19:29 07/23/22 09:26 Ondansetron HCl (Zofran) 4 mg Q4H PRN IV NAUSEA / VOMITING 07/22/22 19:30 08/21/22 19:29 Amlodipine Besylate (Norvasc) 5 mg DAILY PO 07/23/22 09:00 08/22/22 08:59 Esomeprazole Magnesium (Nexium) 40 mg QAM PO 07/22/22 19:30 08/21/22 19:29 Gabapentin (Neurontin) 100 mg BID PO 07/22/22 21:00 08/21/22 20:59 07/23/22 08:41 Hydrochlorothiazide (Hydrochlorothiazide) 25 mg DAILY PO 07/23/22 09:00 08/22/22 08:59 Levothyroxine Sodium (Synthroid) 75 mcg DAILY PO 07/23/22 09:00 08/22/22 08:59 07/23/22 08:42 Metoprolol Tartrate (Lopresser) 25 mg BID PO 07/22/22 21:00 08/21/22 20:59 07/23/22 09:28 Loratadine (Claritin) 10 mg DAILY PO 07/23/22 09:00 08/22/22 08:59 07/23/22 08:45 Oxybutynin Chloride (Ditropan) 5 mg TID PO 07/23/22 09:00 08/22/22 08:59 07/23/22 08:42 Atorvastatin Calcium (Lipitor) 20 mg HS PO 07/23/22 21:00 08/22/22 20:59 Losartan Potassium (Cozaar) 50 mg BID PO 07/23/22 09:00 08/22/22 08:59 Vitals/I&O VS - Last 72 Hours, by Label Date Time Temp Pulse Resp B/P (MAP) Pulse Ox O2 Delivery O2 Flow Rate FiO2 07/25/22 09:35 90 16 93 Room Air* 0 21 07/25/22 09:30 90 16 94 Room Air* 0 21 07/25/22 09:00 112/64 07/25/22 09:00 90 112/64 07/25/22 08:59 112/64 07/25/22 08:59 90 112/64 07/25/22 08:00 98.5 90 16 112/63 (79) 93 Room Air* 0 21 07/25/22 03:55 97.9 90 17 112/64 (80) 92 Room Air* 0 21 07/25/22 00:09 97.6 102 17 107/73 (84) 92 Room Air* 0 21 07/24/22 21:06 106/60 07/24/22 21:06 109 106/60 07/24/22 20:37 109 17 93 Room Air* 0 21 07/24/22 20:07 98.0 109 17 106/60 (75) 93 Room Air* 0 21 07/24/22 20:00 Room Air 07/24/22 19:30 Room Air 0.00 07/24/22 17:40 97.6 102 16 123/69 07/24/22 16:36 98.1 90 21 136/74 (94) 96 Room Air* 0 21 07/24/22 15:29 97.4 94 16 108/57 07/24/22 15:09 98.3 85 16 110/61 07/24/22 11:16 97.3 75 18 108/61 (77) 92 Room Air* 0 21 07/24/22 09:53 88 20 91 Room Air* 0 21 07/24/22 09:50 87 16 93 Room Air* 0 21 07/24/22 09:24 127/58 07/24/22 09:24 127/58 07/24/22 09:23 88 127/58 07/24/22 09:23 88 127/58 07/24/22 08:28 Room Air 0.00 07/24/22 08:04 97.3 88 20 127/58 (81) 91 Room Air* 0 21 07/24/22 07:47 Room Air 0.00 07/24/22 04:05 97.6 90 17 103/55 (71) 94 Room Air* 0 21 07/24/22 00:24 98.0 92 17 127/62 (83) 93 Room Air* 0 21 07/23/22 21:15 82 20 90 Room Air* 0 21 07/23/22 20:41 103/60 07/23/22 20:41 90 103/60 07/23/22 20:33 97.7 90 17 103/60 (74) 93 Room Air* 0 21 07/23/22 19:55 Room Air 0.00 07/23/22 19:54 Room Air 0.00 07/23/22 16:28 98.3 79 16 117/63 (81) 92 Nasal Cannula* 2 07/23/22 11:54 97.9 76 16 105/63 (77) 76 Nasal Cannula* 2 07/23/22 10:00 Nasal Cannula 2.00 07/23/22 09:30 87 16 92 Room Air* 0 07/23/22 09:28 90 126/77 07/23/22 09:06 Nasal Cannula 2.00 07/23/22 08:46 91/51 07/23/22 08:46 90 91/51 07/23/22 08:45 91/51 07/23/22 08:05 98.4 90 16 91/51 (64) 96 Nasal Cannula* 2 07/23/22 04:46 97.9 79 18 123/56 (78) 98 Nasal Cannula* 2 07/23/22 00:23 97.9 75 18 128/67 (87) 98 Nasal Cannula* 2 07/22/22 21:21 60 138/81 07/22/22 20:50 60 18 90 Nasal Cannula* 2 07/22/22 20:30 Nasal Cannula 2.00 07/22/22 19:40 97.3 60 18 138/81 (100) 90 Nasal Canula 3.00 07/22/22 19:39 3.00 07/22/22 19:35 60 18 120/72 (88) 90 Non-Rebreather 5.00 07/22/22 19:30 50 18 96 Non-Rebreather 5.00 07/22/22 19:25 97.0 61 18 90/65 (73) 96 Non-Rebreather 5.00 07/22/22 19:20 58 18 114/46 (68) 99 Non-Rebreather 5.00 07/22/22 19:16 58 18 118/70 (86) 100 Non-Rebreather 5.00 07/22/22 19:12 58 18 114/70 (85) 95 Non-Rebreather 5.00 07/22/22 19:07 59 18 107/45 (65) 100 Non-Rebreather 15.00 07/22/22 19:00 15.00 07/22/22 19:00 68 20 122/50 (74) 100 Non-Rebreather 15.00 07/22/22 18:56 96.9 85 20 122/50 (74) 94 Non-Rebreather 15.00 07/22/22 15:15 98.3 07/22/22 10:05 Room Air 07/22/22 10:05 97.2 69 16 147/72 (97) 93 Room Air Scheduled Acetaminophen (Tylenol), 1-2 TAB PO BID, (Reported) Amlodipine Besylate (Amlodipine Besylate), 1 TAB PO DAILY, (Reported) Aspirin (Low Dose Aspirin Ec), 1 TAB PO DAILY, (Reported) Azelastine Hcl (Azelastine Hcl), 2 SPR NA BID, (Reported) Esomeprazole Magnesium (Nexium), 1 CAP PO QAM, (Reported) Fexofenadine Hcl (Fexofenadine Hcl), 1 TAB PO DAILY, (Reported) Gabapentin (Gabapentin), 1 CAP PO BID, (Reported) Hydrochlorothiazide (Hydrochlorothiazide), 1 TAB PO DAILY, (Reported) Levothyroxine Sodium (Levothyroxine Sodium), 1 TAB PO DAILY, (Reported) Metoprolol Tartrate 25MG (Lopresser 25MG), 1 TAB PO BID, (Reported) Oxybutynin Chloride (Oxybutynin Chloride Er), 1 TAB PO DAILY, (Reported) Simvastatin (Simvastatin), 1 TAB PO HS, (Reported) Valsartan (Diovan), 1 TAB PO BID, (Reported) Sepsis Reassessment @ DC Vital Sign - Last 24 Hours 07/22/22 07/22/22 07/22/22 07/22/22 10:05 10:05 15:15 18:56 Temp 97.2 98.3 96.9 Pulse 69 85 Resp 16 20 B/P (MAP) 147/72 (97) 122/50 (74) Pulse Ox 93 94 O2 Delivery Room Air Room Air Non-Rebreather O2 Flow Rate 15.00 07/22/22 07/22/22 07/22/22 07/22/22 19:00 19:00 19:07 19:12 Pulse 68 59 58 Resp 20 18 18 B/P (MAP) 122/50 (74) 107/45 (65) 114/70 (85) Pulse Ox 100 100 95 O2 Delivery Non-Rebreather Non-Rebreather Non-Rebreather O2 Flow Rate 15.00 15.00 15.00 5.00 07/22/22 07/22/22 07/22/22 07/22/22 19:16 19:20 19:25 19:30 Temp 97.0 Pulse 58 58 61 50 Resp 18 18 18 18 B/P (MAP) 118/70 (86) 114/46 (68) 90/65 (73) Pulse Ox 100 99 96 96 O2 Delivery Non-Rebreather Non-Rebreather Non-Rebreather Non-Rebreather O2 Flow Rate 5.00 5.00 5.00 5.00 07/22/22 07/22/22 07/22/22 07/22/22 19:35 19:39 19:40 20:30 Temp 97.3 Pulse 60 60 Resp 18 18 B/P (MAP) 120/72 (88) 138/81 (100) Pulse Ox 90 90 O2 Delivery Non-Rebreather Nasal Canula Nasal Cannula O2 Flow Rate 5.00 3.00 3.00 2.00 07/22/22 07/22/22 07/23/22 07/23/22 20:50 21:21 00:23 04:46 Temp 97.9 97.9 Pulse 60 60 75 79 Resp 18 18 18 B/P (MAP) 138/81 128/67 (87) 123/56 (78) Pulse Ox 90 98 98 O2 Delivery Nasal Cannula* Nasal Cannula* Nasal Cannula* O2 Flow Rate 2 2 2 FiO2 28 28 28 07/23/22 07/23/22 07/23/22 07/23/22 08:05 08:45 08:46 08:46 Temp 98.4 Pulse 90 90 Resp 16 B/P (MAP) 91/51 (64) 91/51 91/51 91/51 Pulse Ox 96 O2 Delivery Nasal Cannula* O2 Flow Rate 2 FiO2 28 07/23/22 07/23/22 09:06 09:28 Pulse 90 B/P (MAP) 126/77 O2 Delivery Nasal Cannula O2 Flow Rate 2.00 Intake and Output 07/23/22 07:00 Intake Total 3150 ml Output Total 380 ml Balance 2770 ml Laboratory Tests Test 07/22/22 20:56 07/23/22 05:53 White Blood Count 17.5 10^3/uL 15.4 10^3/uL Red Blood Count 3.34 10^6/uL 2.95 10^6/uL Hemoglobin 9.7 g/dL 8.5 g/dL Hematocrit 31.4 % 26.4 % Mean Corpuscular Volume 94.0 fL 89.5 fL Mean Corpuscular Hemoglobin 29.0 pg 28.8 pg Mean Corpuscular Hemoglobin Concent 30.9 g/dL 32.2 g/dL Red Cell Distribution Width 14.7 % 14.5 % Platelet Count 250 10^3/uL 241 10^3/uL Mean Platelet Volume 9.4 fL 9.1 fL Current Medications Medications (Trade) Dose Ordered Sig/Camille PRN Reason Start Time Stop Time Status Last Admin Acetaminophen (Tylenol) 1,000 mg Q6HR 07/23/22 00:00 08/22/22 00:00 07/23/22 05:46 Amlodipine Besylate (Norvasc) 5 mg DAILY 07/23/22 09:00 08/22/22 08:59 Atorvastatin Calcium (Lipitor) 20 mg HS 07/23/22 21:00 08/22/22 20:59 Docusate Sodium (Colace) 100 mg DAILY 07/23/22 09:00 08/22/22 08:59 07/23/22 08:41 Esomeprazole Magnesium (Nexium) 40 mg QAM 07/22/22 19:30 08/21/22 19:29 Gabapentin (Neurontin) 100 mg BID 07/22/22 21:00 08/21/22 20:59 07/23/22 08:41 Hydrochlorothiazide (Hydrochlorothiazide) 25 mg DAILY 07/23/22 09:00 08/22/22 08:59 Hydromorphone HCl (Dilaudid) 1 mg Q4H PRN PAIN 7 - 10 07/22/22 19:30 08/21/22 19:29 07/23/22 09:26 Levothyroxine Sodium (Synthroid) 75 mcg DAILY 07/23/22 09:00 08/22/22 08:59 07/23/22 08:42 Loratadine (Claritin) 10 mg DAILY 07/23/22 09:00 08/22/22 08:59 07/23/22 08:45 Losartan Potassium (Cozaar) 50 mg BID 07/23/22 09:00 08/22/22 08:59 Metoprolol Tartrate (Lopresser) 25 mg BID 07/22/22 21:00 08/21/22 20:59 07/23/22 09:28 Ondansetron HCl (Zofran) 4 mg Q4H PRN NAUSEA / VOMITING 07/22/22 19:30 08/21/22 19:29 Oxybutynin Chloride (Ditropan) 5 mg TID 07/23/22 09:00 08/22/22 08:59 07/23/22 08:42 Rivaroxaban (Xarelto) 10 mg DAILY 07/23/22 19:00 08/22/22 18:59 Throat Lozenges (Cepacol Sore Throat Lozenge) 1 each PRN PRN SORE THROAT 07/22/22 19:30 08/21/22 19:29 Tramadol HCl (Ultram) 50 mg Q6H PRN PAIN 1 - 3 07/22/22 19:30 08/21/22 19:29 Tramadol HCl (Ultram) 100 mg Q6H PRN PAIN 4 - 6 07/22/22 19:30 08/21/22 19:29 Condition/Impression Patient has history of OA of the right hip. She has had right hip pain x1 year that became progressively worse despite conservative treatment. She underwent right total hip replacement on 07/22/22. Hgb 9.0. VSS. NVM+. Patient states that she is ready to be discharged today to swing bed in [place]. She is doing well with PT and is ambualtory with walker. She is able to transfer self independently with walker. Discharge plan discussed with patient. All questions answered. Patient verbalizes understanding. Activity as tolerated Diet as tolerated Discharge Plan Patient to be discharged today to [place] swing bed. Continue home meds Tylenol 500mg: take 2 tablets by mouth every 6 hours Tramadol 50mg: take 1-2 tablets by mouth every 6 hours as needed for pain Xarelto 10mg: take one tablet by mouth once daily x 3 weeks Leave dressing in place until 07/29/22, keep clean and dry. Dressing may be removed on 07/29/22. At that point it is okay to wash hip in shower with antibacterial body soap and water. Pat dry. Wipe ting with alcohol pad after showers. Dress with 4x4 gauze and tape. Dressing changes daily and as needed. If patient still in swing bed, staple removal on or after 08/05/22 when ready. Follow up at Dr. Fuentes's office after discharge from swing bed- call for a ppointment. Referral/Follow-up Dr. Fuentes after swing bed discharge Prescription/RX: Active Scripts Active Reported Diovan (Valsartan) 80 Mg Tablet 1 Tab PO BID Tylenol (Acetaminophen) 325 Mg Tablet 1-2 Tab PO BID Simvastatin 40 Mg Tablet 1 Tab PO HS Oxybutynin Chloride Er (Oxybutynin Chloride) 15 Mg Tab.er.24 1 Tab PO DAILY Lopresser 25MG (Metoprolol Tartrate) 25 Mg Tablet 1 Tab PO BID Levothyroxine Sodium 75 Mcg Tablet 1 Tab PO DAILY Hydrochlorothiazide 25 Mg Tablet 1 Tab PO DAILY Gabapentin 100 Mg Capsule 1 Cap PO BID Fexofenadine Hcl 180 Mg Tablet 1 Tab PO DAILY Nexium (Esomeprazole Magnesium) 40 Mg Capsule. 1 Cap PO QAM Azelastine Hcl 137 Mcg/0.137 Ml [place].pump 2 Spr NA BID 30 Days Low Dose Aspirin Ec (Aspirin) 81 Mg Tablet. 1 Tab PO DAILY Amlodipine Besylate 5 Mg Tablet 1 Tab PO DAILY KALE SWAIN July 25, 2022 10:52
[2022-07-25 11:13] VITALS: BP 117/68
--- NOTE | 2022-07-25 12:15 | NUR ---
DISCHARGE INSTRUCTIONS GIVEN TO PT AND SPOUSE, VOICED UNDERSTANDING ABOUT MEDICATIONS AND FOLLOW UP APPT WITH DR STRONG ,PT DISCHARGED VIA W/C ACCOMPANIED BY NURSING X2 TO PERSONAL VEHICLE WITH SPOUSE
[2022-07-25 12:23] VITALS: BP 117/68
--- NOTE | 2022-07-25 12:37 | NUR ---
REPORT CALL TO [facility] AT SPOKE WITH MELINA SIM.
== END 2022-07-25 12:15 | disposition swing bed (61) | DRG 470 ==
LOC: MS 09:57
PROVIDERS: ADMIT Orthopaedic Surgery; ATTEND Orthopaedic Surgery
PROC: 0QS804Z Reposition Right Femoral Shaft with Internal Fixation Device, Open Approach (ICD-10-PCS; 2022-07-22)
PROC: 0SR9029 Replacement of Right Hip Joint with Metal on Polyethylene Synthetic Substitute, Cemented, Open Approach (ICD-10-PCS; principal; 2022-07-22 14:35)
DX: M16.11 Unilateral primary osteoarthritis, right hip (principal); I10 Essential (primary) hypertension; E03.9 Hypothyroidism, unspecified
CPT/HCPCS: 36415; 36430; 73502; 76000; 80053; 81001; 85014; 85018; 85027; 86885; 86900; 86901; 86923; 87070; 87077; 87086; 87186; 97163; 97167; A4217; A6550; G0378; J0131; J1100; J1170; J2250; J2405; J3370; J3490; J7050; J7120; P9016; 97530-GP; 97535-GO; C9290